=== PATIENT | female | born 1980 | race Caucasian/White ===

== ENCOUNTER 2022-05-20 12:50 | Outpatient (CLI) | payer OTHER, SELFPAY ==
--- NOTE | 2022-05-20 13:00 | CRLHL7_ITS ---
For Patients: As a result of the Century Cures Act, medical imaging exams and procedure reports are released immediately into your electronic medical record. You may view this report before your referring provider. If you have questions, please contact your health care provider. BILATERAL MAMMOGRAM WITH COMPUTER-AIDED DETECTION AND TOMOSYNTHESIS TECHNIQUE: CC, MLO and Implant displaced views were obtained. These mammographic images have been obtained using full-field digital technique. These mammographic images were interpreted with the benefit of computer-aided detection. Breast Tomosynthesis was used in this interpretation. COMPARISON FILM: 05/17/2021. FINDINGS: The breasts are extremely dense, which lowers the sensitivity of mammography IMPRESSION: There is no radiographic evidence for malignancy. ASSESSMENT: BI-RADS Category 2: Benign RECOMMENDATION: Routine screening mammogram in 1 year. A lay language report of this examination will be provided to the patient. Dae Chiu M.D. Diagnostic Radiologist [email or web address] DELFINO/Dictated by: Dae Chiu MD @ 05/21/2022 11:24:00 AM (Electronically Signed)
== END 2022-05-20 12:51 | disposition home or self-care (01) ==
LOC: MAMMO 12:53
PROVIDERS: PCP Obstetrics & Gynecology; Visit Provider Obstetrics & Gynecology
DX: Z12.31 Encounter for screening mammogram for malignant neoplasm of breast (principal); R92.2 Inconclusive mammogram
CPT/HCPCS: 77063; 77067

== ENCOUNTER 2022-10-12 10:46 | Outpatient (CLI) | payer OTHER, SELFPAY | END 2022-10-12 10:47 | disposition home or self-care (01) | LOC: NFLDUCREF 10-16 11:43 | PROVIDERS: PCP Obstetrics & Gynecology; Visit Provider Nurse Practitioner Family | DX: R30.0 Dysuria (principal); N39.0 Urinary tract infection, site not specified | CPT/HCPCS: 87086; 87186 ==

== ENCOUNTER 2023-07-31 12:52 | Outpatient (CLI) | payer OTHER, SELFPAY ==
--- NOTE | 2023-07-31 13:00 | CRLHL7_ITS ---
For Patients: As a result of the Century Cures Act, medical imaging exams and procedure reports are released immediately into your electronic medical record. You may view this report before your referring provider. If you have questions, please contact your health care provider. BILATERAL SCREENING MAMMOGRAM WITH COMPUTER-AIDED DETECTION AND TOMOSYNTHESIS TECHNIQUE: CC, MLO and implant-displaced views were obtained. These mammographic images have been obtained using full-field digital technique. These mammographic images were interpreted with the benefit of computer-aided detection. Breast tomosynthesis was used in this interpretation. COMPARISON FILM: 05/20/22, 05/17/21, 08/17/15. FINDINGS: The breasts are extremely dense, which lowers the sensitivity of mammography. IMPRESSION: There is no radiographic evidence for malignancy. ASSESSMENT: BI-RADS Category 2: Benign RECOMMENDATION: Routine screening mammogram in 1 year. A lay language report of this examination will be provided to the patient. DAE MANCERA M.D. Diagnostic Radiologist [email or web address] JESSICA/phuc Transcribed: 08/03/2023, 1:[address]/Dictated by: Dae Mancera MD @ 08/03/2023 10:24:00 AM (Electronically Signed)
== END 2023-07-31 12:53 | disposition home or self-care (01) ==
LOC: MAMMO 12:56
PROVIDERS: PCP Obstetrics & Gynecology; Visit Provider Obstetrics & Gynecology
DX: Z12.31 Encounter for screening mammogram for malignant neoplasm of breast (principal); R92.2 Inconclusive mammogram
CPT/HCPCS: 77063; 77067

== ENCOUNTER 2024-08-11 09:04 | Outpatient (CLI) | payer OTHER, SELFPAY ==
--- NOTE | 2024-08-11 09:15 | MR_ITS ---
[facility] [address] [facility] [address] Phone:?[phone] Fax:?[phone] Referring Physician Information: Maurilio Aguilar M.D. [address] [place] [address] Phone:?[phone] Fax:?[phone] Patient:Romario Tripp D.O.B:?1980 Sex:?Female Phone:?[phone] [facility] MRN:?[id number] Exam Date:?08/11/2024 EXAM: MRI of the RIGHT KNEE, without contrast CLINICAL: Right knee pain. Evaluate for meniscal tear versus stress fracture. COMPARISONS: X-rays 08/01/2024. TECHNICAL: Multiplanar multisequence MRI of the right knee was obtained. SEDATION: None. CONTRAST: None. FINDINGS: Ligaments: ACL: Intact and unremarkable. PCL: Intact and unremarkable. MCL: Intact and unremarkable. LCL: Intact and unremarkable. Posterolateral corner: Popliteus, biceps femoris, iliotibial band, and the popliteofibular ligament appear intact. Posteromedial corner: Semimembranosus, pes anserine tendons and posterior oblique ligament appear intact. Extensor mechanism: Patellar tendon: Intact, without tendinopathy. Quadriceps tendon: Intact, without tendinopathy. Retinacula: Medial and lateral retinacula are intact. Patellofemoral joint: Patella: Grade 2-3 chondral loss and scattered chondral fissuring involves the patella with mild underlying subchondral reactive edema. Trochlea: No significant chondromalacia. Medial compartment: Medial meniscus: Mild focal tearing involving the free edge of the posterior horn on sagittal series 6 image 21 and coronal series 7 image 22. There is also ill-defined complex tearing involving the posterior root on sagittal series 6 image 17 and coronal series image 23 with minimal adjacent reactive marrow edema involving the lateral aspect of the posterior medial tibial plateau. There is 4 mm of medial extrusion of the peripheral body segment into the medial gutter. Medial cartilage: Grade 2-3 chondral loss and deep chondral fissuring involves the central aspect of the weightbearing medial femoral condyle. High-grade chondral loss involves the peripheral posterior nonweightbearing medial femoral condyle. Medial tibial plateau cartilage is preserved. Lateral compartment: Lateral meniscus: There is complex tearing throughout the posterior horn extending into the posterior root as seen on sagittal series 6 image 7-14. There is attenuation and complex tearing involving the body segment on coronal series 8 image 17-21. Mild free edge blunting involving the anterior horn on sagittal series 6 image 8. Lateral cartilage: Grade 3-4 chondral loss involves the lateral tibial plateau as well as the weightbearing and posterior nonweightbearing lateral femoral condyle with underlying subchondral marrow edema. Adjacent osteophyte formation involving the lateral compartment. Knee joint: Effusion: Small right knee effusion. Intra-articular bodies:?No convincing bodies identified. Popliteal cyst: Small. Bones: There is increased bone marrow edema involving the fibular head without discrete fracture identified. Scattered subchondral marrow edema involving the knee is noted as above. IMPRESSION: 1. Tearing of the lateral meniscus as above. 2. Ill-defined complex tearing involving the posterior root medial meniscus with associated medial extrusion of the peripheral body segment medial meniscus into the medial gutter. Mild focal tearing also involves the free edge of the posterior horn medial meniscus. 3. Increased bone marrow edema involving the fibular head concerning for contusion. 4. Scattered tricompartmental chondral loss as above. 5. Small joint effusion and small popliteal cyst. [facility] Electronically signed on 08/11/2024 2:49:00 PM by Anderson Man D.O.
== END 2024-08-11 09:05 | disposition home or self-care (01) ==
LOC: MRI 09:05
PROVIDERS: Visit Provider Orthopaedic Surgery
DX: M25.561 Pain in right knee (principal); S83.281A Other tear of lateral meniscus, current injury, right knee, initial encounter; S83.231A Complex tear of medial meniscus, current injury, right knee, initial encounter; M25.461 Effusion, right knee
CPT/HCPCS: 73721

== ENCOUNTER 2024-09-01 08:05 | Day surgery (SDC) | payer OTHER, SELFPAY ==
[2024-09-01] VITALS (12 sets, daily range): BP systolic 86–123; BP diastolic 43–82; PULSE 37–60; RESP 14–16; TEMP 36.1–36.6; O2SAT 97–100; BMI 22.4
--- OUTSIDE RECORDS SUMMARY | 2024-09-01 08:08 | XMS_ITS ---
Author Organization [facility] Address [address] [place] [address] Care Team Providers Care Dough Machine Operator Name Role Phone Unavailable Unavailable Unavailable Surgery Details Not on file Complications Check Surgery Details section. Procedure Estimated Blood Loss Check Surgery Details section. Procedure Findings Check Surgery Details section. Procedure Specimens Taken Check Surgery Details section.
--- OUTSIDE RECORDS SUMMARY | 2024-09-01 08:08 | XMS_ITS | Encounter Summary ---
Author Organization [facility] Address [address] [place] [address] Care Team Providers Care Spinning Frame Fixer Name Role Phone Aliay Rushing M.D. Primary Care Provider +1- [phone] Reason for Referral * Outpatient (Routine) - Authorized Specialty Diagnoses / Procedures Referred By Contac t Referred To Contact Diagnoses Screening Mammogram Breast Cancer Procedures BI Breast Screening Bilateral with Tomosynthesis Aliya Rushing M.D. [address] [address] Phone: tel: fax: [facility] Referral ID Status Reason Start Date Expiration Date V isits Requested Visits Authorized [id number] Authorized 08/09/2024 08/09/2025 1 1 Encounter Details Date Type Department Care Team (Late st Contact Info) Description 08/09/2024 [facility] Ali[facility] Rushing M.D. [id number] [place] [id number] Screening Mammogram Breast Cancer Social History Tobacco Use Types Packs/Day Years Used Date Smoking Tobacco: Never Smokeless Tobacco: Never Humiliation, Afraid, Rape, and Kick questionnair e Answer Date Recorded Within the last year, have y ou been afraid of your partner or ex-partner? No 07/03/2023 Within the last year, have y ou been humiliated or emotionally abused in other ways by your partner or ex-partner? No Within the last year, have y ou been kicked, hit, slapped, or otherwise physically hurt by your partner or ex-partner? No 07/03/2023 Within the last year, have y ou been raped or forced to have any kind of sexual activity by your partner or ex-partner? No 07/03/2023 Overall Financial Resource Strain (CARDIA) Answe r Date Recorded How hard is it for you to pa y for the very basics like food, housing, medical care, and heating? Not hard at all 07/03/2023 PHQ-2 Answer Date Recorded PHQ-2 Score 2 05/23/2024 Exercise Vital Sign Answer Date Recorde d On average, how many days pe r week do you engage in moderate to strenuous exercise (like a brisk walk)? 6 days 07/03/2023 On average, how many minutes do you engage in exercise at this level? 60 min 07/03/2023 Hunger Vital Sign Answer Date Recorded Within the past 12 months, y ou worried that your food would run out before you got the money to buy more. Never true 07/03/20 Within the past 12 months, t he food you bought just didn't last and you didn't have money to get more. Never true 07/03/2023 PRAPARE - Transportation Answer Date Re corded In the past 12 months, has l ack of transportation kept you from medical appointments or from getting medications? No 06/10 In the past 12 months, has l ack of transportation kept you from meetings, work, or from getting things needed for daily living? No 07/03/2023 Depression Answer Date Recor ded PHQ-9 Total Score (max 27) 8 06/29 Nutrition Answer Date Recorded On average, how many serving s of fruits and vegetables do you eat per day (serving size is equal to 1 cup or approximately the size of a tennis ball)? 0-2 07/03/2023 Dental Answer Date Recorded Dental: Regular Dentist Yes 07/03/20 Employment Answer Date Recorded Employment status Employed and actively working without restrictions 07/03/2023 Housing Stability Answer Date Recorded What is your living situation today? 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 Gender Identity Not on file Sexual Orientation Not on file documented as of this encounter Plan of Treatment Scheduled Orders Name Type Priority Associated Diagnoses Order Schedule BI Breast Screening Bilateral with Tomosynthesis Imaging RAD - Routine (most inpatients and all outpatients) Screening Mammogram Breast Cancer Expected: 09/08/2024, Expires: 02/05/2025 documented as of this encounter Visit Diagnoses Diagnosis Screening Mammogram Breast Cancer documented in this encounter Additional Health Concerns Assessment Noted Time PHQ-9 Depression Total Score: 8 06/29/20 23 1:15 PM CDT documented as of this encounter Care Teams Spinning Frame Fixer Relationship Specialty Start Date End Date Aliya Rushing M.D. [address] [place] [id number] PCP - General 09/24/22 documented as of this encounter
--- OUTSIDE RECORDS SUMMARY | 2024-09-01 08:08 | XMS_ITS | Clinical Summary ---
Author Organization [facility] Address [address] [place] [address] Care Team Providers Care Virginia Line Attendant Name Role Phone Aliya Rushing M.D. Primary Care Provider +1- [phone] Source Comments Patient records contain information from all sites at [facility]. For routine questions regarding patient records, call [phone] during business hours, M-F 8:00 AM - 5:00 PM Central Time. Record requests for emergency care only can be directed to [phone] at any time.[facility] Allergies Active Allergy Reactions Criticality Noted Date Comments Penicillins Rash 04/11/2011 Tioconazole Swelling 05/15/2017 Medications * This document contains information received from the source organization and may not represent a complete record from that organization. sertraline (Zoloft) 100 mg tablet Take 1.5 tablets (150 mg total) by mouth daily. 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 Screening Mammogram Breast Cancer from Last 3 Months Immunizations Name Administration Dates Next Due H1N1 Inj 09/13/2009 HepB (discontinued) adolesce nt/high risk 01/11/2001,06/24/2000,05/22/2000 HepB, Unspecified 01/11/2001,06/24/2000,05/22/20 00 Influenza Split Preservative Free ID 08/06/2011 Influenza TIV (IM) 08/01/2009,08/19/2006 Influenza, Injectable, Quadrivalent 08/07/2021 Influenza, Seasonal, Injectable 08/01/2009,08/19 Influenza, Unspecified 08/24/2017,2015,08/30/2015,2013,09/21/2013,08/09/2013,09/20/2010 MMR 04/16/1992,08/29/1981 SARS-COV-2 (COVID-19) - PFIZ ER (Discontinued)(12 years or older) 11/20/2020,10/31/2020 Td (Adult), adsorbed 11/24/2005 Td, (Adult) Unspecified 11/09/2005 Tdap 01/15/2016 influenza trivalent vaccine (6 months and older)(PF) 08/22/2020,08/11/2018 influenza vaccine QV(FLUBLOK ) (18 years or older) (PF) 08/10/2019 influenza vaccine quad (FLUZONE/FLUARIX) (6 months and older)(PF) 07/21/2022,09/13/2009 Family History Medical History Relation Name Comments Diabetes Brother Hypertension Father Skin cancer Father Skin cancer Grandmother Hypertension Mother Relation Name Status Comments Brother Alive Father Alive Grandmother Mother Alive Social History Tobacco Use Types Packs/Day Years Used Date Smoking Tobacco: Never Smokeless Tobacco: Never Tobacco Cessation:Counseling Given: Not Answered Humiliation, Afraid, Rape, and Kick questionnair e [...] your living situation today? 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 Gender Identity Not on file Sexual Orientation Not on file Last Filed Vital Signs Vital Sign Reading Time Taken Comments Blood Pressure 108/69 05/23/2024 11:03 AM CDT Pulse 50 05/23/2024 11:03 AM CDT Temperature 36.6 ??C (97.9 ??F) 05/23/2024 11:03 AM C DT Respiratory Rate 16 05/23/2021 5:15 PM CDT Oxygen Saturation 98% 05/23/2024 11:03 AM CDT Inhaled Oxygen Concentration - - Weight 67 kg (147 lb 11.3 oz) 05/23/2024 11:03 A M CDT Height 173 cm (5' 8.11) 05/23/2024 11:03 AM CDT Body Mass Index 22.39 05/23/2024 11:03 AM CDT Plan of Treatment Health Maintenance Due Date Last Done Comments HIV Screening 1980 Hepatitis C Screening 1980 Mammogram 08/17/2016 08/17/2015 Depression Monitoring (PHQ-9) 10/29/2023 06/29/2023 COVID-19 Vaccine ( season) 2024 11/20/2020, 10/31/2020 Influenza Vaccine (#1) 2024 , 07/21/2022, 08/07/2021, Additional history exists Cervical Cancer Screening 11/15/20242019, 11/15/2019, 04/16/2017, Additional history exists DTaP,Tdap,and Td Vaccines (2 - Td or Tdap) 01/14/2026 01/15/2016, 11/24/2005, 11/09/2005 Lipid (Cholesterol) Screening 05/23/2029 05/23/2024, 09/04/2014 Hepatitis B Vaccines Completed 01/11/2001, 01/11/2001, 06/24/2000, Additional history exists HPV Vaccines Aged Out No longer eligi ble based on patient's age to complete this topic Pneumococcal vaccine (0-64 years) Aged Out No longer eligible based on patient's age to complete this topic Procedures Procedure Name Priority Date/Time Associated Diagnosis Comments LIPID PANEL, S Routine 05/23/2024 11:55 AM CDT Screening Lipid EXT THINPREP W/HPV CO-TEST SCREEN Routine 11/15/2019 BI BREAST DIAGNOSTIC BILATERAL Routine 08/17/2015 7:53 AM CDT from Last 3 Months or Most Recently Relevant to Health Maintenance Results * (ABNORMAL) Lipid Panel (05/23/2024 11:55 AM CDT) Triglycerides 83 mg/dL 05/23/2024 12:15 PM CDT [facility] Comment: ----REFERENCE VALUE---- Normal: <150 mg/dL Borderline High: 150-199 mg/dL High: 200-499 mg/dL Very High: > or =500 mg/dL Cholesterol, Total 221(H) mg/dL 2023 12:15 PM CDT [facility] Comment: ----REFERENCE VALUE---- Desirable: < 200 mg/dL Borderline High: 200 - 239 mg/dL High: > or = 240 mg/dL Cholesterol, LDL, Calculated 116 mg/dL 05/23/2024 12:15 PM CDT [facility] Comment: ----REFERENCE VALUE---- Desirable: <100 mg/dL Above Desirable: 100-129 mg/dL Borderline High: 130-159 mg/dL High: 160-189 mg/dL Very High: >=190 mg/dL ----ADDITIONAL INFORMATION---- LDL cholesterol calculated using the Blevins/NIH equation. Cholesterol, HDL 91 >=50 mg/dL 05/23/20 12:15 PM CDT [facility] Cholesterol, Non-HDL, Calculated 130 mg/dL 05/23/2024 12:15 PM CDT [facility] Comment: ----REFERENCE VALUE---- Desirable: <130 mg/dL Above Desirable: 130-159 mg/dL Borderline High: 160-189 mg/dL High: 190-219 mg/dL Very High: > or =220 mg/dL Fasting (8 HR or more) No 05/23/2024 11:55 AM CDT [facility] Blood (Blood, Venous) 05/23/2024 11:55 AM CDT 05/23/2024 11:57 AM CDT us Aliya Rushing M.D. LAB BLOOD ADD-ON Final Res ult [facility] [address] [place] [id number], [facility] CN[facility] in [address] [address] * EXT ThinPrep w/HPV Co-Test Screen (11/15/2019) EXT ThinPrep w/HPV Co-Test Screen Normal - See Scanned Report for Details Normal - See Scanned Report for Details, [facility] - Report Received and Scanned [facility] Comment:see care everywhere for full result details Thin Prep Vial (Cervix/Endocervi x) 11/15/2019 us Historical Provider LAB PAP PATHDX ORDERABLES Fi nal Result [facility] * BI Breast Diagnostic Bilateral (08/17/2015 7:53 AM CDT) Anatomical Region Laterality Modality Breast Bilateral Mammography 08/17/2015 7:53 AM CDT Impressions 08/17/2015 11:05 AM CDT Mass at the 8-9 o'clock position of the right breast 3 cm from the nipple is unchanged since 02/03/2012 and should be benign. This most likely represents a fibroadenoma. RECOMMENDATION: Future screening per ACR guidelines. BI-RADS ASSESSMENT: 2: Benign. LETTER: L1/2D NA Electronically signed by: ?? Peter Collins MD [phone] [id number] 17-Aug-2015 11:05 ?Mariana Salas [id number] 17-Aug-2015 11:05 Narrative 08/17/2015 11:05 AM CDT 17-Aug-2015 07:53:00 ??Exam: Mammo Diag Bilat Indications: Fibroadenoma Breast R ORIGINAL REPORT - 17-Aug-2015 11:05:00 EXAM: Digital Diagnostic Mammography Bilateral ??(accession [id number]), Breast Ultrasound RIGHT (accession [id number]) COMPARISON: Prior ultrasound was available for comparison (02/03/2012). DENSITY: d. The breasts are extremely dense, which lowers the sensitivity of mammography. FINDINGS: No significant masses, calcifications, or other findings are seen in either breast on the mammogram. There are bilateral subpectoral silicone implants. Given the patient's palpable area in the right breast, targeted ultrasound was performed for further evaluation. Targeted ultrasound of the palpable site in the right breast at the 8-9 o'clock position of the right breast 3 cm from the nipple demonstrates an oval circumscribed isoechoic mass in parallel orientation which measures 1 x 0.3 x 1.3 cm; this mass is unchanged in size and appearance compared with the prior ultrasound 02/03/2012 and therefore should be benign and most likely represents a fibroadenoma. Procedure Note Missy Salas M.D. - 02/05/2018 17-Aug-2015 07:53:00 Exam: Mammo Diag Bilat Indications: Fibroadenoma Breast R ORIGINAL REPORT - 17-Aug-2015 11:05:00 EXAM: Digital Diagnostic Mammography Bilateral (accession [id number]),Breast Ultrasound RIGHT (accession [id number]) COMPARISON: Prior ultrasound was available for comparison (02/03/2012). DENSITY: d. The breasts are extremely dense, which lowers the sensitivityof mammography. FINDINGS: No significant masses, calcifications, or other findings areseen in either breast on the mammogram. There are bilateral subpectoralsilicone implants. Given the patient's palpable area in the right breast, targeted ultrasoundwas performed for further evaluation. Targeted ultrasound of the palpablesite in the right breast at the 8-9 o'clock position of the right breast 3cm from the nipple demonstrates an oval circumscribed isoechoic mass inparallel orientation which measures 1 x 0.3 x 1.3 cm; this mass isunchanged in size and appearance compared with the prior irnluzjuta94/27/2012 and therefore should be benign and most likely represents afibroadenoma. IMPRESSION: Mass at the 8-9 o'clock position of the right breast 3 cm fromthe nipple is unchanged since 02/03/2012 and should be benign. This mostlikely represents a fibroadenoma. RECOMMENDATION: Future screening per ACR guidelines. BI-RADS ASSESSMENT: 2: Benign. LETTER: L1/2D NA Electronically signed by: Peter Collins MD [phone] [id number] 17-Aug-2015 11:05 Mariana Salas [id number] 17-Aug-2015 11:05 Aaron aSnders M.D. IMG BI PROCEDURES Final Resul t from Last 3 Months or Most Recently Relevant to Health Maintenance Insurance [employer] Care Teams Virginia Line Attendant Relationship Specialty Start Date End Date Aliya Rushing M.D. [address] [place] [address] [place] [id number] PCP - General 09/24/22
--- OUTSIDE RECORDS SUMMARY | 2024-09-01 08:08 | XMS_ITS | Referral Summary ---
Author Organization [facility] Address [address] [place] [address] Care Team Providers Care Radio Frequency Engineer Name Role Phone Aliya Rushing M.D. Primary Care Provider +1- [phone] Source Comments Patient records contain information from all sites at [facility]. For routine questions regarding patient records, call [phone] during business hours, M-F 8:00 AM - 5:00 PM Central Time. Record requests for emergency care only can be directed to [phone] at any time.[facility] Encounters Date Type Department Care Team Description 08/09/2024 Orders Only [facility] P[facility] Aliya Rushing M.D. 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 Comment: ----REFERENCE VALUE---- Normal: <150 mg/dL Borderline High: 150-199 mg/dL High: 200-499 mg/dL Very High: > or =500 mg/dL Cholesterol, Total 221(H) mg/dL 2023 12:15 PM CDT [facility] Comment: ----REFERENCE VALUE---- Desirable: < 200 mg/dL Borderline High: 200 - 239 mg/dL High: > or = 240 mg/dL Cholesterol, LDL, Calculated 116 mg/dL 05/23/2024 12:15 PM CDT [facility] Comment: ----REFERENCE VALUE---- Desirable: <100 mg/dL Above [...] 11:55 AM CDT 05/23/2024 11:57 AM CDT Aliya Rushing M.D. LAB BLOOD ADD-ON Final Res ult [facility] [address] [place] [address], [facility] [place] [address] * EXT ThinPrep w/HPV Co-Test Screen (11/15/2019) EXT ThinPrep w/HPV Co-Test Screen Normal - See Scanned Report for Details Normal - See Scanned Report for Details, HIMS - Report Received and Scanned [facility] Comment:see care everywhere for full result details Thin Prep Vial (Cervix/Endocervi x) 11/15/2019 us Historical Provider LAB PAP PATHDX ORDERABLES Fi nal Result [facility] * BI Breast Diagnostic Bilateral [...] Electronically signed by: ?? Peter Collins MD [phone] [id number] 17-Aug-2015 11:05 ?Mariana Salas MD [id number] 17-Aug-2015 11:05 Narrative 08/17/2015 11:05 AM CDT 17-Aug-2015 07:53:00 ??Exam: Mammo Diag Bilat Indications: Fibroadenoma Breast R ORIGINAL REPORT - 17-Aug-2015 11:05:00 EXAM: Digital Diagnostic Mammography Bilateral ??(accession [id number]), Breast Ultrasound RIGHT (accession [id number]) COMPARISON: Prior ultrasound was available for comparison [...] 11:05:00 EXAM: Digital Diagnostic Mammography Bilateral (accession [id number]),Breast Ultrasound RIGHT (accession [id number]) COMPARISON: Prior ultrasound was available for comparison [...] size and appearance compared with the prior yshnmlimxu79/27/2012 and therefore should be benign and most likely represents afibroadenoma. IMPRESSION: Mass at the 8-9 o'clock position of the right breast 3 cm fromthe nipple is unchanged since 02/03/2012 and should be benign. This mostlikely represents a fibroadenoma. RECOMMENDATION: Future screening per ACR guidelines. BI-RADS ASSESSMENT: 2: Benign. LETTER: L1/2D NA Electronically signed by: Peter Collins MD [phone] [id number] 17-Aug-2015 11:05 Mariana Salas [id number] 17-Aug-2015 11:05 Aaron Sanders M.D. IMG BI PROCEDURES Final Resul t from Last 3 Months or Most Recently Relevant to Health Maintenance Insurance [employer] Care Teams Radio Frequency Engineer Relationship Specialty Start Date End Date Aliya Rushing M.D. [id number] [place] [address] [place] [address] [facility] - General 09/24/22
--- NOTE | 2024-09-01 08:50 | W.ANESCHARGE ---
Anesthesia Charges Start Date/Time Anesthesia Start Date: 09/01/24 Anesthesia Start Time: 10:04 Stop Date/Time Anesthesia Stop Date: 09/01/24 Anesthesia Stop Time: 11:09
[2024-09-01 09:17] LABS: HCG Qualitative Serum* Negative (Negative)
[2024-09-01] MEDS: CEFAZOLIN 2 GM INJ IVP (10:17)
[2024-09-01] MEDS: BUPIVACAINE 0.25% 30 ML INJECTION (10:57)
--- NOTE | 2024-09-01 11:05 | P.ORPRC_ITS ---
Procedure Note Date of procedure: 09/01/24 Procedure: PREOPERATIVE DIAGNOSIS: Right knee medial and lateral meniscus tear POSTOPERATIVE DIAGNOSIS: Right knee medial and lateral meniscus tear, tricompartmental osteoarthritis NAME OF OPERATION: Right knee arthroscopic partial medial and lateral meniscectomy, medial and patellofemoral compartment chondroplasty SURGEON: Maurilio Aguilar MD FIELD SERVICE TECH: KALEB Tomas ANESTHESIA: Spinal ESTIMATED BLOOD LOSS: 0 mL COMPLICATIONS: None SPECIMENS: None DRAINS: None PREOPERATIVE ANTIBIOTICS: Ancef 1 gram INDICATIONS: The patient is a 44-year-old with a history of right knee pain. MRI scan is consistent with a medial and lateral meniscus tear. Despite appropriate nonoperative management, including activity modification, antiinflammatories, djud-pxz-nkjqrye pain medication, bracing, physical therapy, and injections they continue to have pain and disability. Operative intervention was offered. The risks, benefits and expected outcomes were discussed in detail. These included but were not limited to: Infection, bleeding, injury to blood vessel or nerve, venous thromboembolism. All questions were answered to their satisfaction. PROCEDURE: Spinal anesthesia was administered. The patient was placed supine on the operating room table. The right lower extremity was prepped and draped in the usual sterile fashion. The limb was exsanguinated with the Theron bandage. The pneumatic tourniquet was inflated to 300 mmHg. A standard anterolateral portal was established. The arthroscope was introduced. The working portal was established anteromedially. Diagnostic arthroscopy was performed with findings as follows: The suprapatellar pouch is normal. Articular surface on the patella shows diffuse grade 2/3 change. Articular surface on the trochlea shows focal grade 1 change centrally. The medial gutter is normal. The medial compartment shows diffuse grade 3 change on the medial femoral condyle, grade 2 change on the medial tibial plateau. There is an early osteophyte off of the medial femoral condyle. The medial meniscus has a small radial tear of the posterior horn from the leading edge, not to the capsule. The posterior root is intact. The notch shows the ACL to be intact. The lateral compartment shows a focal area of grade 3 change on the lateral femoral condyle, grade 2/3 change on the lateral tibial plateau. The lateral meniscus has a complex degenerative tear of the posterior horn at the posterior tibial attachment. It is not detached from the tibia. There is minimal horizontal cleavage tearing of the midbody. The lateral gutter is normal. The posterior horn of the medial meniscus was debrided to a stable base using a combination of natasha. Likewise, the posterior horn and midbody of the lateral meniscus was debrided to a stable base with the shaver through both portals. Unstable chondral flaps on the medial femoral condyle and patella were debrided with the shaver through both portals, taken to a stable base. Arthroscopic instruments were removed, the portal sites were Steri-Stripped closed, the knee was infiltrated with 30 mL of 0.25% Marcaine without epinephrine. A dry dressing was applied, the tourniquet was released. Sponge and needle counts were correct x 2. The patient tolerated the procedure well. There were no apparent complications. They were carefully transferred to the hospital bed and taken to the postanesthesia care unit in satisfactory condition. PLAN: The patient will be discharged to home. They may weightbear as tolerates. Range of motion will be unrestricted. They will follow up in the office next week for a wound check.
--- NOTE | 2024-09-01 11:11 | W.ANESCHARGE ---
Anesthesia Charges Start Date/Time Anesthesia Start Date: 09/01/24 Anesthesia Start Time: 10:04 Stop Date/Time Anesthesia Stop Date: 09/01/24 Anesthesia Stop Time: 11:09
== END 2024-09-01 12:59 | disposition home or self-care (01) ==
LOC: OR 08:06
PROVIDERS: Anesthesiology; Visit Provider Orthopaedic Surgery
PROC: (CPT 29882; principal; 2024-09-01 09:15)
DX: M23.221 Derangement of posterior horn of medial meniscus due to old tear or injury, right knee (principal); M23.251 Derangement of posterior horn of lateral meniscus due to old tear or injury, right knee; M17.11 Unilateral primary osteoarthritis, right knee
CPT/HCPCS: 29880; 01400; 36415; 84703; J0665; J0690; J1100; J2250; J2405; J2704; J3010

== ENCOUNTER 2024-09-21 17:27 | Outpatient (CLI) | payer OTHER, SELFPAY ==
--- OUTSIDE RECORDS SUMMARY | 2024-09-21 17:29 | XMS_ITS | Clinical Summary ---
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 Twin , antepartum 01/03/2009 , multiple 11/30/2008 Estimated Date of Delivery Comme nts Yes 05/21/2009 Immunizations Name Administration Dates Next Due Influenza, IIV3 (Age >=3 years) 08/01/2009,08/19 Td (Age >=7 Years) 11/19/2005 Family History Medical History Relation Name Comments Diabetes Brother Hyperlipidemia Father b 1951 Hypertension Maternal Grandmother Hypertension Mother b 1950 Relation Name Status Comments Brother Father Maternal Grandmother Mother Social History Tobacco Use Types Packs/Day Years Used Date Smoking Tobacco: Never Alcohol Use Standard Drinks/Week Comments No 0 (1 standard drink = 0.6 oz pur e alcohol) Estimated Date of Delivery Comme nts Yes 05/21/2009 Sex and Gender Information Value Date Recorded Sex Assigned at Not on file Gender Identity Not on file Sexual Orientation Not on file Obstetrics History Para Term AB IAB SAB Ectopic Multiple Livin g Live Births 3 1 1 0 1 0 1 0 0 1 2 Date Outcome GA Total Labor Labor/2nd/3rd Weight Sex Type Anes PTL Teri A1 A5 Name Clin 2006 Term 39w 0d 10h 00m/ 3.69 kg (8 lb 2 oz) F Vag Teriin g Todd Sanaz s Delivery Location:[place] Comments:No complicati ons 2006 SAB 8w0 d SPONTA NEOUS Decea sed Current Last Filed Vital Signs Vital Sign Reading Time Taken Comments Blood Pressure 105/65 04/24/2011 10:03 AM CDT Pulse 59 04/24/2011 10:03 AM CDT Temperature 37 ??C (98.6 ??F) 12/24/2010 7:34 PM PROGRAM WRITER Respiratory Rate 18 04/22/2009 8:00 AM CDT Oxygen Saturation 97% 04/22/2009 8:00 AM CDT Inhaled Oxygen Concentration - - Weight 62.5 kg (137 lb 12.8 oz) 011 10:03 AM CDT Height 170.2 cm (5' 7) 08/01/2009 2:48 PM CDT Body Mass Index 21.58 08/01/2009 2:48 PM CDT Plan of Treatment Health Maintenance Due Date Last Done Comments Tdap 1991 Depression screening for age 12+ 1992 BMI (ht and wt on same day) for age 18+ 1998 Hepatitis C screening for age 18-79 1998 Tetanus booster 11/19/2015 11/19/2005 Pap test for age 21-65 11/15/2022 0, 11/15/2019, 10/31/2008, Additional history exists COVID-19 vaccine series (2023- season) 2024 Influenza for age 9-49 07/10/2024 08/01/2009, 2005 RSV vaccine for adults or (1 - 1-dose 75+ series) 2055 HIV for age 15-65 Completed 10/12/2008 Pneumococcal series for age 6-64 Aged Out No longer eligible based on patient's age to complete this topic Procedures Procedure Name Priority Date/Time Associated Diagnosis Comments SUPERVISOR SEWER MAINTENANCE THIN PREP PAP SCREEN IMAGED Routine 11/15/2019 9:00 AM PROGRAM WRITER ANTI HIV 1/2 Routine 10/12/2008 12:18 PM PROGRAM WRITER Supervision of Other Normal from Last 3 Months or Most Recently Relevant to Health Maintenance Results * SUPERVISOR SEWER MAINTENANCE THIN PREP PAP SCREEN IMAGED (11/15/2019 9:00 AM PROGRAM WRITER) Case Report Gynecologic Cytology Report ? Case: [id number] ? Authorizing Provider: ??Ayala Jansen MD ?Collected: ? 11/15/2019 0900 ? Ordering Location: ? [facility] ?Received: ?11/16/2019 1702 ? First Screen: ?Martin Reddy ? Specimen: ?SUPERVISOR SEWER MAINTENANCE ThinPrep Vial Screening, Cervical/Vaginal ? 11/23/2019 1:57 PM PROGRAM WRITER [facility] INTERPRETATION/ RESULT NEGATIVE FOR INTRAEPITHELIAL LESION OR MALIGNANCY (NIL) (none) 11/23/2019 1:57 PM PROGRAM WRITER [facility] IMEN ADEQUACY Satisfactory for evaluation Endocervical component present 11/23/2019 1:57 PM PROGRAM WRITER [facility] HPV REQUEST HPV and PAP 11/23/2019 1:57 PM PROGRAM WRITER [facility] Date of LMP 11/09/2019 11/23/2019 1:57 PM PROGRAM WRITER [facility] Last Pap Date 11/23/2019 1:57 PM PROGRAM WRITER [facility] Comment:unknown Additional Information 11/23/2019 1:57 PM PROGRAM WRITER [facility] Comment: Interpreted at [facility] - [address], [place] [address] Automated Review Successful 11/23/2019 1:57 PM PROGRAM WRITER [facility] Comment:Specimen processed s uccessfully by automated religion department chair device, ThinPrep Imaging System, [employer] ANCILLARY TESTING SUPERVISOR SEWER MAINTENANCE HPV Ordered, Please see separate report 11/23/2019 1:57 PM PROGRAM WRITER [facility] Note The pap test is a screening technique, not a diagnostic procedure. It is used primarily to screen for squamous cancers and precursor lesions. Published studies have shown that it is subject to both false negative and false positive results. The pap test should not be used as the sole means to diagnose or exclude pre-malignant and malignant lesions. 11/23/2019 1:57 PM PROGRAM WRITER [facility] Other (Cervical/Vagina l) 11/15/2019 9:00 AM PROGRAM WRITER 11/16/2019 5:02 PM PROGRAM WRITER Ayala Jansen MD PATHOLOGY/CYTOLOGY [facility] [address] [place] [address], [place] * HIV (10/12/2008 12:18 PM PROGRAM WRITER) ANTI HIV 1/2 Non-reacti ve [facility] Blood specimen (specimen) BLOOD SPECIMEN / Unknown 10/12/2008 12:18 PM PROGRAM WRITER 10/12/2008 12:07 PM PROGRAM WRITER Radha Perez SILO MAN SEND OUTS [facility] INTERNAL ZIP [phone] [address] from Last 3 Months or Most Recently Relevant to Health Maintenance Advance Directives * Full Code (Latest Code Status on File) Date Activated Date Inactivated Comments 04/20/2009 5:36 AM 04/20/2009 1:10 PM * Full Code Date Activated Date Inactivated Comments 04/20/2009 3:47 AM 04/20/2009 5:31 AM Care Teams File Drawer Finisher Relationship Specialty Start Date End Date Todd Gonzalez MD PCP - General 04/25/09
--- OUTSIDE RECORDS SUMMARY | 2024-09-21 17:29 | XMS_ITS | Clinical Summary ---
Author Organization [facility] Address [address] [place] [address] Care Team Providers Care Breaker Unit Assembler Name Role Phone Aliya Rushing M.D. Primary Care Provider +1- [phone] Source Comments Patient records contain information from all sites at [facility]. For routine questions regarding patient records, call [phone] during business hours, M-F 8:00 AM - 5:00 PM Central Time. Record requests for emergency care only can be directed to [phone] at any time.[facility] Allergies Active Allergy Reactions Criticality Noted Date [...] Description 08/09/2024 Orders Only [facility] PCP [facility] Aliya Rushing M.D. Screening Mammogram Breast [...] your living situation today? 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 Gender Identity Not on file Sexual Orientation [...] 08/17/2016 08/17/2015 Depression Monitoring (PHQ-9) 10/29/2023 06/29/2023 Depression Monitoring (PHQ-9 for quality tracking) 11/09/2023 COVID-19 Vaccine ( season) 2024 11/20/2020, 10/31/2020 Influenza Vaccine (#1) 2024 , 07/21/2022, 08/07/2021, Additional history exists Cervical/Vaginal Cancer Screening 11/15/2024 11/15/2019, 11/15/2019, 04/16/2017, Additional history exists DTaP,Tdap,and Td Vaccines (2 - Td or Tdap) 01/14/2026 01/15/2016, 11/24/2005, 11/09/2005 Lipid (Cholesterol) Screening 05/23/2029 05/23/2024, 09/04/2014 Hepatitis B Vaccines Completed 01/11/2001, 01/11/2001, 06/24/2000, Additional history exists HPV Vaccines Aged Out No longer eligi ble based on patient's age to complete this topic IPV Vaccines Aged Out No longer eligi ble [...] equation. Cholesterol, HDL 91 >=50 mg/dL 05/23/20 24 12:15 PM CDT CNFL Cholesterol, Non-HDL, Calculated [...] M.D. LAB BLOOD ADD-ON Final Res ult Performing Organization Address City/[facility]/ZIP Co de Phone Number [facility] [address] [place] [address], [facility] CNFL [facility] in [address] [address] * EXT ThinPrep w/HPV Co-Test Screen (11/15/2019) EXT ThinPrep w/HPV Co-Test Screen Normal - See Scanned Report for Details Normal - See Scanned Report for Details, HIMS - Report Received and Scanned [facility] Comment:see care everywhere for full result details Thin Prep Vial (Cervix/Endocervi x) 11/15/2019 us Historical Provider LAB PAP PATHDX ORDERABLES Fi nal Result [facility] * BI Breast Diagnostic Bilateral [...] Electronically signed by: ?? Peter Collins MD [phone] [id number] 17-Aug-2015 11:05 ?Mariana Salas MD [id number] 17-Aug-2015 11:05 Narrative 08/17/2015 11:05 AM CDT 17-Aug-2015 07:53:00 ??Exam: Mammo Diag Bilat Indications: Fibroadenoma Breast R ORIGINAL REPORT - 17-Aug-2015 11:05:00 EXAM: Digital Diagnostic Mammography Bilateral ??(accession [id number]), Breast Ultrasound RIGHT (accession [id number]) COMPARISON: Prior ultrasound was available for comparison [...] 11:05:00 EXAM: Digital Diagnostic Mammography Bilateral (accession [id number]),Breast Ultrasound RIGHT (accession [id number]) COMPARISON: Prior ultrasound was available for comparison [...] size and appearance compared with the prior qhxlgwkluy76/27/2012 and therefore should be benign and most likely represents afibroadenoma. IMPRESSION: Mass at the 8-9 o'clock position of the right breast 3 cm fromthe nipple is unchanged since 02/03/2012 and should be benign. This mostlikely represents a fibroadenoma. RECOMMENDATION: Future screening per ACR guidelines. BI-RADS ASSESSMENT: 2: Benign. LETTER: L1/2D NA Electronically signed by: Peter Collins MD [phone] [id number] 17-Aug-2015 11:05 Mariana Salas [id number] 17-Aug-2015 11:05 Aaron Sanders M.D. IMG BI PROCEDURES Final Resul t from Last 3 Months or Most Recently Relevant to Health Maintenance Insurance [employer] Care Teams Breaker Unit Assembler Relationship Specialty Start Date End Date Aliya Rushing M.D. [address] [place] [address] [place] [address] PCP - General 09/24/22
--- OUTSIDE RECORDS SUMMARY | 2024-09-21 17:29 | XMS_ITS | Referral Summary ---
Author Organization [facility] Address [address] [place] [address] Care Team Providers Care Music Therapy Specialist Name Role Phone Aliya Rushing M.D. Primary Care Provider +1- [phone] Source Comments Patient records contain information from all sites at [facility]. For routine questions regarding patient records, call [phone] during business hours, M-F 8:00 AM - 5:00 PM Central Time. Record requests for emergency care only can be directed to [phone] at any time.[facility] Encounters Date Type Department Care Team Description 08/09/2024 Orders Only [facility] PCP [facility] Aliya Rushing M.D. Screening Mammogram Breast [...] your living situation today? 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 Gender Identity Not on file Sexual Orientation [...] Triglycerides 83 mg/dL 05/23/2024 12:15 PM CDT [facility] Comment: ----REFERENCE VALUE---- Normal: <150 mg/dL Borderline High: 150-199 mg/dL High: 200-499 mg/dL Very High: > or =500 mg/dL Cholesterol, Total 221(H) mg/dL 2023 12:15 PM CDT [facility] Comment: ----REFERENCE VALUE---- Desirable: < 200 mg/dL Borderline High: 200 - 239 mg/dL High: > or = 240 mg/dL Cholesterol, LDL, Calculated 116 mg/dL 05/23/2024 12:15 PM CDT [facility] Comment: ----REFERENCE VALUE---- Desirable: <100 mg/dL [...] M.D. LAB BLOOD ADD-ON Final Res ult [facility] [address] [place] [address], [facility] [place] [address] * EXT ThinPrep w/HPV Co-Test Screen (11/15/2019) EXT ThinPrep w/HPV Co-Test Screen Normal - See Scanned Report for Details Normal - See Scanned Report for Details, HIMS - Report Received and Scanned [facility] Comment:see care everywhere for full result details Thin Prep Vial (Cervix/Endocervi x) 11/15/2019 us Historical Provider LAB PAP PATHDX ORDERABLES Fi nal Result [facility] * BI Breast Diagnostic Bilateral [...] Electronically signed by: ?? Peter Collins MD [phone] [id number] 17-Aug-2015 11:05 ?Mariana Salas MD [id number] 17-Aug-2015 11:05 Narrative 08/17/2015 11:05 AM CDT 17-Aug-2015 07:53:00 ??Exam: Mammo Diag Bilat Indications: Fibroadenoma Breast R ORIGINAL REPORT - 17-Aug-2015 11:05:00 EXAM: Digital Diagnostic Mammography Bilateral ??(accession [id number]), Breast Ultrasound RIGHT (accession [id number]) COMPARISON: Prior ultrasound was available for comparison [...] 11:05:00 EXAM: Digital Diagnostic Mammography Bilateral (accession [id number]),Breast Ultrasound RIGHT (accession [id number]) COMPARISON: Prior ultrasound was available for comparison [...] size and appearance compared with the prior wunxnaxgaw54/27/2012 and therefore should be benign and most likely represents afibroadenoma. IMPRESSION: Mass at the 8-9 o'clock position of the right breast 3 cm fromthe nipple is unchanged since 02/03/2012 and should be benign. This mostlikely represents a fibroadenoma. RECOMMENDATION: Future screening per ACR guidelines. BI-RADS ASSESSMENT: 2: Benign. LETTER: L1/2D NA Electronically signed by: Peter Collins MD [phone] [id number] 17-Aug-2015 11:05 Mariana Salas [id number] 17-Aug-2015 11:05 Aaron Sanders M.D. IMG BI PROCEDURES Final Resul t from Last 3 Months or Most Recently Relevant to Health [place] [address] Care Teams Music Therapy Specialist Relationship Specialty Start Date End Date Aliya Rushing M.D. [id number] [place] [address] [place] [id number] [facility] - General 09/24/22
--- OUTSIDE RECORDS SUMMARY | 2024-09-21 17:29 | XMS_ITS ---
Author Organization [facility] Address [address] [place] [address] Care Team Providers Care Guitar Repair Technician Name Role Phone Unavailable Unavailable Unavailable Surgery Details Not on file Complications Check Surgery Details section. Procedure Estimated Blood Loss Check Surgery Details section. Procedure Findings Check Surgery Details section. Procedure Specimens Taken Check Surgery Details section.
--- OUTSIDE RECORDS SUMMARY | 2024-09-21 17:29 | XMS_ITS | Encounter Summary ---
Author Organization [facility] Address [address] [place] [address] Care Team Providers Care Electronic Organ Technician Name Role Phone Aliya Rushing M.D. Primary Care Provider [phone] Reason for Referral * Outpatient (Routine) - Authorized Specialty Diagnoses / Procedures Referred By Contac t Referred To Contact Diagnoses Screening Mammogram Breast Cancer Procedures BI Breast Screening Bilateral with Tomosynthesis Aliya Rushing M.D. [address] [address] Phone: tel: fax: [facility] Referral ID Status Reason Start Date Expiration Date V isits Requested Visits Authorized [id number] Authorized 08/09/2024 08/09/2025 1 1 Encounter Details Date Type Department Care Team (Late st Contact Info) Description 08/09/2024 Orders Only [facility] Aliya Rushing M.D. [address] [place] [phone] Screening Mammogram Breast Cancer Social History [...] your living situation today? 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 [address] [place] [phone] PCP - General 09/24/22 documented as of this encounter
--- NOTE | 2024-09-21 17:30 | MR_ITS ---
[address] [address] Phone:?[phone] Fax:?[phone] Referring Physician Information: Maurilio Aguilar M.D. [address] [facility] [address] Phone:?[phone] Fax:?[phone] Patient:Romario Tripp D.O.B:?1980 Sex:?Female Phone:?[phone] [facility] MRN:?[id number] Exam Date:?09/21/2024 EXAM: MRI of the LEFT KNEE, without contrast CLINICAL INFORMATION: Female, 44 years old, with left knee pain. INDICATION: Evaluate for lateral meniscal tear. PRIOR SURGERY: None reported. PLAIN FILMS: None available. COMPARISONS: No prior MRIs available. TECHNICAL INFORMATION: Using a 1.5T MR scanner and a localizing surface coil: sagittals: PD, PDFS coronals: PD, STIR axials: PD, T2FS SEDATION: None CONTRAST: None FINDINGS: Knee joint: Effusion: Small left knee effusion. Popliteal cyst: None. Loose bodies: None. Subcutaneous and extra-articular soft tissues: Unremarkable. Ligaments: ACL: Intact ACL anteromedial and posterolateral bundles, without sprain or tear. PCL: Intact PCL, without acute or chronic injury. MCL: Mild thickening involving the proximal one third of the superficial MCL, without MCL tear (coronal PD series 7 image 16). LCL: Intact LCL, without injury. Posterolateral corner: No posterolateral corner soft tissue injury. Popliteus, biceps femoris, iliotibial band, popliteofibular ligament and lateral gastrocnemius are intact. Posteromedial corner: No posteromedial corner soft tissue injury. Semimembranosus, pes anserine tendons and posterior oblique ligament are without injury, tendinopathy or bursitis. Extensor mechanism: Patellar tendon: Intact, without tendinopathy. Quadriceps tendon: Mild quadriceps tendinopathy with mild chronic enthesopathic changes. No tendon tear. Retinacula: Medial and lateral retinacula are intact. Fat pads: Moderate marked edema is present in the superolateral aspect of Hoffa's fat pad (sagittal PDFS series 6 image 22 and axial PDFS series 4 image 14). Unremarkable suprapatellar and femoral fat pads. Medial compartment: Medial meniscus: Abnormal signal and irregularity is present throughout the posterior meniscocapsular, without tear (sagittal PDFS series 6 images 8-13). Meniscal extrusion measures 3 mm. No parameniscal cyst. Medial femoral condyle: Approximately 10 x 3 mm near full-thickness chondral defect at the junction of the central and posterior surfaces of the medial femoral condyle (sagittal PDFS series 6 image 9 and coronal STIR series 8 image 23). Medial tibial plateau: No chondromalacia or osteochondral abnormality. Lateral compartment: Lateral meniscus: No articular surface, meniscosynovial junction or root tear. No displacement, extrusion or parameniscal cyst. Lateral femoral condyle: No chondromalacia or osteochondral abnormality. Lateral tibial plateau: No chondromalacia or osteochondral abnormality. 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 Trochlea: Broad-based grade II chondromalacia of the medial facet and central sulcus, with mild marginal osteophytosis. Proximal tibiofibular joint: Unremarkable, without evidence of ligament sprain injury, joint effusion or adjacent marrow edema. Bones: A prominent bone island is incidentally noted in the proximal humeral metadiaphysis (sagittal PD series 5 image 15). The osseous structures are otherwise unremarkable. IMPRESSION: 1. Posterior meniscocapsular junction sprain of the medial meniscus. No discrete medial or lateral meniscal tear. 2. Patellar tendon lateral femoral condyle friction syndrome. 3. Mild osteoarthritis of the patellofemoral compartment. 4. Approximately 10 x 3 mm near full-thickness chondral defect at the junction of the central and posterior surfaces of the medial femoral condyle, without reactive osseous changes. 5. Small knee joint effusion. No popliteal (Martinez's) cyst. 6. Mild quadriceps tendinopathy, without tear. 7. No acute cruciate or collateral ligament sprain/tear. BC Electronically signed on 09/22/2024 7:54:00 AM by Julián Romero M.D.
== END 2024-09-21 17:28 | disposition home or self-care (01) ==
LOC: MRI 17:28
PROVIDERS: Visit Provider Orthopaedic Surgery
DX: M25.562 Pain in left knee (principal); S83.8X2A Sprain of other specified parts of left knee, initial encounter; M17.12 Unilateral primary osteoarthritis, left knee; M25.462 Effusion, left knee; S83.207A Unspecified tear of unspecified meniscus, current injury, left knee, initial encounter
CPT/HCPCS: 73721